=== PATIENT | male | born 1970 | race Asian ===

== ENCOUNTER 2023-06-09 05:59 | Outpatient (REF) | payer OTHER, SELFPAY ==
--- NOTE | ~2023-06-09 | US_ITS ---
EXAMINATION: US ABDOMEN COMPLETE CLINICAL INFORMATION: Abdominal pain. COMPARISON: None available. TECHNIQUE: Real-time imaging of the abdominal viscera. Limited visualization due to bowel gas. FINDINGS: PANCREAS: Limited visualization of pancreatic tail and head. Imaged portion of pancreatic body is unremarkable. ABDOMINAL AORTA: Nonaneurysmal. INFERIOR VENA CAVA: Visualized portions are normal. LIVER: Hepatomegaly, 18.3 cm. Increased hepatic parenchymal heterogeneity and echogenicity could be associated with hepatocellular disease/hepatic steatosis and substantially limits visualization. Correlation with liver function tests and clinical exam recommended to determine further management. Right hepatic 3.0 x 3.3 x 2.9 cm echogenic mass with irregular margins. Right hepatic 0.2 cm echogenic lesion characteristic of a calcification. GALLBLADDER: No gallstones. No gallbladder wall thickening. COMMON BILE DUCT: Normal in caliber measuring 0.3 cm in diameter. RIGHT KIDNEY: No hydronephrosis. No renal calculi. Limited visualization. The kidney measures 10.8 cm in maximum dimension. LEFT KIDNEY: No hydronephrosis. No renal calculi. Limited visualization. The kidney measures 11.7 cm in maximum dimension. SPLEEN: Normal. The spleen measures 11 cm in maximum dimension. FREE FLUID: None. US/US abdomen complete IMPRESSION: 1. Hepatomegaly, 18.3 cm. Increased hepatic parenchymal heterogeneity and echogenicity could be associated with hepatocellular disease/hepatic steatosis and substantially limits visualization. Correlation with liver function tests and clinical exam recommended to determine further management. 2. Right hepatic 3.3 cm echogenic mass with irregular margins. MRI with gadolinium recommended for further characterization. This study was presented today 06/10/2023 for interpretation. [facility] staff will provide results to referring provider at this time.
== END 2023-06-09 06:00 | disposition home or self-care (01) ==
LOC: HO.UMASIMG 05:59
PROVIDERS: Visit Provider Emergency Medicine
DX: R10.9 Unspecified abdominal pain (principal)
CPT/HCPCS: 76700

== ENCOUNTER 2023-06-19 12:50 | Outpatient (REF) | payer OTHER, SELFPAY ==
--- NOTE | ~2023-06-19 | MR_ITS ---
EXAMINATION: MR ABDOMEN WITHOUT AND WITH CONTRAST CLINICAL INFORMATION: Prior abnormal imaging. COMPARISON: Abdominal ultrasound 06/09/2023 TECHNIQUE: MR abdomen was performed without and with use of 8.5 mL intravenous Gadavist gadolinium contrast. Postcontrast images are performed in multiphase dynamic sequences. Imaging was performed in 3 planes. FINDINGS: LUNG BASES: The visualized lung bases are unremarkable. LIVER, GALLBLADDER, AND BILIARY TREE: Hepatic steatosis. Lobulated T2 hyperintense T1 hypointense lesion in the right hepatic lobe measuring 3.1 x 3.1 x 3.0 cm. Left hepatic cyst measures 0.9 x 1.1 x 1.3 cm. No biliary ductal dilatation is present. The gallbladder is unremarkable with no evidence of gallbladder wall thickening, or obvious pericholecystic inflammatory changes. PANCREAS: Unremarkable. SPLEEN: Unremarkable. ADRENAL GLANDS: Unremarkable. KIDNEYS AND URETERS: The kidneys are symmetric in size. There is a T2 hypointense and T1 isointense wedge-shaped contour abnormality at the lateral upper pole of the right kidney. There is enhancement following intravenous contrast administration however to a lesser extent than the surrounding renal parenchyma. Approximate measurements are 2.2 x 1.6 cm in transverse dimension. No hydronephrosis or perinephric fluid collection. GASTROINTESTINAL TRACT: No bowel obstruction. No ascites or fluid collection. ABDOMINAL WALL: No significant hernia is appreciated. LYMPH NODES: No bulky lymphadenopathy. VASCULAR: Normal caliber abdominal aorta. MR/MR abdomen wo/w con IMPRESSION: Hepatic steatosis. 3.1 x 3.1 x 3.0 cm right hepatic hemangioma. Contour abnormality lateral upper pole right kidney with abnormal enhancement approximately measuring 2.2 x 1.6 cm in transverse dimension. Findings may represent renal neoplasm. Advise consultation with urology.
[2023-06-19] MEDS: gadobutroL 10 ML VIAL IVPUSH (13:33)
== END 2023-06-19 12:51 | disposition home or self-care (01) ==
LOC: HO.MRI 12:50
PROVIDERS: PCP Physician Assistant; Visit Provider Emergency Medicine
DX: R93.2 Abnormal findings on diagnostic imaging of liver and biliary tract (principal)
CPT/HCPCS: 74183; A9585

== ENCOUNTER → 2023-09-10 14:47 | Outpatient (REF) | payer OTHER, SELFPAY ==
--- NOTE | 2023-09-10 14:52 | CA_ITS ---
Transthoracic Echocardiogram Patient (Last, First, Middle): Casimiro Neal, Gender: Male Date of : 1970 Age: 52 Procedure Date: 09/10/2023 Procedure Type: Transthoracic Echocardiogram Location: OP Height: 182.88 cm Weight: 86.18 kg BSA: 2.08 m2 Heart Rate: 77 bpm BP: 118 / 80 mmHg [employer] Teacher: SB Referring MD: Dakota Hanson MD Symptoms: R93.421 ABNORMAL RADIOLOGIC FINDING ON DX RT KIDNEY/Renal infarct Study Quality: Adequate ECG Rhythm: Sinus Conclusions: - The visually estimated ejection fraction is between 55-60%. - Normal right ventricular cavity size and systolic function. Findings Left Ventricle Normal left ventricular size, thickness, systolic function, and wall motion. The visually estimated ejection fraction is between 55-60%. Abnormal diastolic function is noted. Spectral Doppler is indicative of a pseudonormal filling pattern. E/E prime ratio is between 8 and 15 consistent with indeterminate filling pressures. Right Ventricle Normal right ventricular cavity size and systolic function. Atria The left atrium is normal in size. Interatrial shunt cannot be excluded. The right atrium is normal in size. Aortic Valve Normal aortic valve structure and function. There is no aortic valve stenosis. There is no aortic valve regurgitation. Mitral Valve Normal mitral valve structure and function. There is no mitral valve regurgitation. There is no mitral valve stenosis. Pulmonic Valve The pulmonic valve is normal. There is no pulmonic valve regurgitation. Tricuspid Valve There is no tricuspid valve regurgitation. Tricuspid regurgitation envelope is inadequate for calculation of right ventricular systolic pressure. Normal right atrial pressure. Great Vessels There is mild dilatation of the ascending aorta measuring 3.80 cm. The visualized portions of the pulmonary artery and branches are normal. Venous The inferior vena cava is normal in size and collapses greater than 50% with inspiration. Pericardium/Pleural There is no evidence of pericardial effusion. Prior Study Comparison No prior study available for comparison. Recommendations, Care & Conclusions Recommend contrast study to evaluate intracardiac shunting. Measurements 2D Linear Measurements IVSd: 1.07 0.6-0.9/0.6-1.0 cm LVIDd: 5.53 3.9-5.3/4.2-5.9 cm LVIDd Index: 2.66 2.4-3.2/2.2-3.1 cm/m2 LVIDs: 3.85 2.0-3.6 cm LVPWd: 0.87 0.7-1.1 cm LA Diam: 3.20 2.7-3.8/3.0-4.0 cm LAIDs Index: 1.54 1.5-2.3 cm/m2 LV Mass: 257.80 67-162/88-224 g LV Mass Index: 123.94 43-95/49-115 g/m2 LVOT Diam: 2.50 3.0+(-)1.3 cm 2D Systolic Function EF 4C: 53.20 >55% EF 2C: 50.80 >55% EF BiP: 51.80 >55% Mitral Valve MV Pk E: 0.73 MV PK A: 0.61 MV Decel Time: 196.00 E/A: 1.20 E'Lateral: 7.62 E'Medial: 6.64 E/E' Med: 11.00 E/E' Lat: 9.60 PHT: 57.00 MVA PHT: 3.86 Decel [place]: 3.73 Aortic Valve AoV Pk Colten: 1.17 AoV Pk Grad: 5.00 IGNACIO: 3.26 LVOT LVOT Pk Colten: 0.77 LVOT Mn Colten: 0.57 LVOT VTI: 0.16 LVOT Pk Grad: 2.00 LVOT Mn Grad: 1.00 LVOT Diam: 2.50 LVOT Area: 4.91 Diastolic Function MV Pk E: 0.73 MV Pk A: 0.61 E/A: 1.20 E'Medial: 6.64 E/E' Med: 11.00 E' Laterial: 7.62 E/E' Lat: 9.60 Right Ventricle TAPSE (mm): 23.30 TVS' Colten: 13.10 Tricuspid Valve RA Press: 3.00 Great Vessels Aorta Sinus of Valsalva: 3.20 2.0-3.5 cm Ao Asc: 3.80 2.1-3.4 cm Ao Arch: 2.70 Pulmonary Veins Pulm Vein S/D 1.40 Pulmonary Valve PV Pk Colten: 0.90 Peak PV Grad: 3.00 Updated in Other Vendor System with Status of Final Bill Perez MD electronically signed on 09/13/2023 8:53:30 PM with status of Final
== END ==
LOC: HO.CARD 14:47
PROVIDERS: PCP Physician Assistant; Visit Provider Emergency Medicine
DX: R93.421 Abnormal radiologic findings on diagnostic imaging of right kidney (principal)
CPT/HCPCS: 93306

== ENCOUNTER → 2023-09-10 14:52 | Outpatient (BNV) | payer OTHER, SELFPAY | PROVIDERS: PCP Physician Assistant; Visit Provider Internal Medicine Cardiovascular Disease | DX: R93.1 Abnormal findings on diagnostic imaging of heart and coronary circulation (principal) | CPT/HCPCS: 93306 ==